=== PATIENT | female | born 1965 | race American Indian/Alaskan Native ===

== ENCOUNTER 2021-09-24 16:19 | Emergency (ER) | payer MEDICAID ==
--- NOTE | 2021-09-24 16:33 | Emergency Department Report ---
HPI - General Time Seen by Provider: 09/24/21 16:30 - HPI HPI: 56-year-old -[place] female presents to the emergency department via EMS from home with a concern for carbon monoxide poisoning and the complaint of shortness of breath that has been going on for the past hour. The patient has been burning wood and a fireplace in her home "all day" but the carbon monoxide alarm went off about 1 hour ago, around the time that the patient began having the shortness of breath. The fire department use a carbon monoxide monitor and said that it was at a level of 16 in the home. Patient was given supplemental oxygen via nonrebreather in route with EMS. She was found to have a heart rate of about 180 bpm. She has a past medical history of hypertension. The patient is a tobacco smoker at 1/2 pack/day. ED Review of Systems ROS: Stated complaint: CARBON MONOXIDE Other details as noted in HPI Comment: All other systems reviewed and negative Constitutional: denies: fever Eyes: denies: eye pain, vision change ENT: denies: ear pain, throat pain Respiratory: shortness of breath. denies: wheezing Cardiovascular: denies: chest pain, edema Gastrointestinal: denies: abdominal pain, vomiting Genitourinary: denies: dysuria, discharge Musculoskeletal: denies: back pain, arthralgia Skin: denies: rash, lesions Neurological: denies: headache, weakness Physical Exam - Physical Exam Physical Exam: GENERAL: The patient is well-developed well-nourished. HENT: Normocephalic. Atraumatic. Patient has moist mucous membranes. EYES: Extraocular motions are intact. NECK: Supple. Trachea is midline. CHEST/LUNGS: Clear to auscultation. There is no respiratory distress noted. HEART/CARDIOVASCULAR: Regular. There is severe tachycardia. There is no murmur. ABDOMEN: Abdomen is soft, nontender. Patient has normal bowel sounds. There is no abdominal distention. SKIN: Skin is warm and dry. NEURO: The patient is awake, alert, and oriented. The patient is cooperative. Normal speech. MUSCULOSKELETAL: There is no tenderness or deformity. There is no limitation range of motion. ED Course - Reevaluation(s) Reevaluation #1: 09/24/21 18:04 Patient was given a dose of 15 mg of Cardizem to try and slow down the heart rat e to better evaluate this tachyarrhythmia. Initially she went down to about 160 bpm but then appeared to convert into a normal sinus rhythm with a heart rate of about 75 bpm. The patient is currently asymptomatic. Labs have been unremarkable including CBC, metabolic panel, negative troponin, normal D-dimer and low proBNP. I will obtain a second troponin at about 2 hours. - ABG Interpretation Ph: 7.421 PCO2: 34 PO2: 259 Bicarbonate: 21.8 Interpretation: normal ED Medical Decision Making - Lab Data Result diagrams: 09/24/21 16:41 09/24/21 16:41 Lab Results 09/24/21 09/24/21 09/24/21 Range/Units 12:40 16:41 16:41 WBC 6.9 (4.5-11.0) K/mm3 RBC 5.14 H (3.65-5.03) M/mm3 Hgb 14.6 H (10.1-14.3) gm/dl Hct 45.3 H (30.3-42.9) % MCV 88 (79-97) fl MCH 29 (28-32) pg MCHC 32 (30-34) % RDW 14.4 (13.2-15.2) % Plt Count 180 (140-440) K/mm3 Lymph % (Auto) 42.6 H (13.4-35.0) % Mcculloch % (Auto) 8.9 H (0.0-7.3) % Eos % (Auto) 0.6 (0.0-4.3) % Baso % (Auto) 1.3 (0.0-1.8) % Lymph # (Auto) 2.9 (1.2-5.4) K/mm3 Mcculloch # (Auto) 0.6 (0.0-0.8) K/mm3 Eos # (Auto) 0.0 (0.0-0.4) K/mm3 Baso # (Auto) 0.1 (0.0-0.1) K/mm3 Seg Neutrophils % 46.6 (40.0-70.0) % Seg Neutrophils # 3.2 (1.8-7.7) K/mm3 D-Dimer 155.58 (0-234) ng/mlDDU ABG pH 7.421 (7.350-7.450) pH Units ABG pCO2 34.3 mm Hg ABG pO2 259.3 H (80.0-90.0) mm Hg ABG HCO3 21.8 (20.0-26.0) mmol/L ABG O2 Saturation 99.4 H (95.0-99.0) % ABG O2 Content 20.1 (0.0-44) ABG Base Excess -1.9 (-2.0-3.0) mmol/L ABG Hemoglobin 15.1 (12.0-16.0) gm/dl ABG Carboxyhemoglobin 7.0 H (0.0-5.0) % ABG Methemoglobin 0.5 (0.0-1.5) % Oxyhemoglobin 91.9 L (95.0-99.0) % FiO2 100 % Sodium (137-145) mmol/L Potassium (3.6-5.0) mmol/L Chloride (98-107) mmol/L Carbon Dioxide (22-30) mmol/L Anion Gap mmol/L BUN (7-17) mg/dL Creatinine (0.6-1.2) mg/dL Estimated GFR ml/min BUN/Creatinine Ratio % Glucose (65-100) mg/dL Calcium (8.4-10.2) mg/dL Magnesium (1.7-2.3) mg/dL Total Bilirubin (0.1-1.2) mg/dL AST (5-40) units/L ALT (7-56) units/L Alkaline Phosphatase (35-129) units/L Troponin T (0.00-0.029) ng/mL NT-Pro-B Natriuret Pep (0-900) pg/mL Total Protein (6.3-8.2) g/dL Albumin (3.9-5) g/dL Albumin/Globulin Ratio % 09/24/21 09/24/21 09/24/21 Range/Units 16:41 16:41 19:29 WBC (4.5-11.0) K/mm3 RBC (3.65-5.03) M/mm3 Hgb (10.1-14.3) gm/dl Hct (30.3-42.9) % MCV (79-97) fl MCH (28-32) pg MCHC (30-34) % RDW (13.2-15.2) % Plt Count (140-440) K/mm3 Lymph % (Auto) (13.4-35.0) % Mcculloch % (Auto) (0.0-7.3) % Eos % (Auto) (0.0-4.3) % Baso % (Auto) (0.0-1.8) % Lymph # (Auto) (1.2-5.4) K/mm3 Mcculloch # (Auto) (0.0-0.8) K/mm3 Eos # (Auto) (0.0-0.4) K/mm3 Baso # (Auto) (0.0-0.1) K/mm3 Seg Neutrophils % (40.0-70.0) % Seg Neutrophils # (1.8-7.7) K/mm3 D-Dimer (0-234) ng/mlDDU ABG pH (7.350-7.450) pH Units ABG pCO2 mm Hg ABG pO2 (80.0-90.0) mm Hg ABG HCO3 (20.0-26.0) mmol/L ABG O2 Saturation (95.0-99.0) % ABG O2 Content (0.0-44) ABG Base Excess (-2.0-3.0) mmol/L ABG Hemoglobin (12.0-16.0) gm/dl ABG Carboxyhemoglobin (0.0-5.0) % ABG Methemoglobin (0.0-1.5) % Oxyhemoglobin (95.0-99.0) % FiO2 % Sodium 139 (137-145) mmol/L Potassium 3.5 L (3.6-5.0) mmol/L Chloride 98.9 (98-107) mmol/L Carbon Dioxide 22 (22-30) mmol/L Anion Gap 22 mmol/L BUN 12 (7-17) mg/dL Creatinine 0.9 (0.6-1.2) mg/dL Estimated GFR > 60 ml/min BUN/Creatinine Ratio 13 % Glucose 205 H (65-100) mg/dL Calcium 9.9 (8.4-10.2) mg/dL Magnesium 1.60 L (1.7-2.3) mg/dL Total Bilirubin 0.30 (0.1-1.2) mg/dL AST 58 H (5-40) units/L ALT 63 H (7-56) units/L Alkaline Phosphatase 141 H (35-129) units/L Troponin T < 0.010 < 0.010 (0.00-0.029) ng/mL NT-Pro-B Natriuret Pep 146.4 (0-900) pg/mL Total Protein 7.5 (6.3-8.2) g/dL Albumin 4.4 (3.9-5) g/dL Albumin/Globulin Ratio 1.4 % - EKG Data -: EKG Interpreted by Me EKG shows normal: sinus rhythm, axis, intervals, QRS complexes, ST-T waves Rate: tachycardia (174 bpm) - EKG Data When compared to previous EKG there are: previous EKG unavailable Interpretation: other (Severe sinus tachycardia 174, wide complexes, normal axis. No ST elevation MS) 09/24/21 18:04 Repeat EKG at 1743 shows a normal sinus rhythm at 72 bpm, PACs, normal axis, nor mal intervals. No ST elevation MS. Normal-appearing EKG. - Medical Decision Making This patient presented to the emergency department with severe tachycardia, shortness of breath, and concern for exposure to carbon monoxide. Apparently the fire department registered a carbon oxide level of 16 with their equipment. EKG shows slightly wide-complex tachycardia but no morphology consistent with ST elevation myocardial infarction. The patient did have a carboxyhemoglobin level done and it came back at 7. This does not appear consistent with a significant carbon monoxide exposure and may be secondary to the fact that the patient is a daily tobacco smoker. Chest x-ray does not show any pneumonia, pleural effusions, pneumothorax, widened mediastinum, or any other acute process. The rest the patient's labs have been unremarkable including CBC, metabolic panel an d negative troponins x2. The patient was given a dose of Cardizem secondary to the tachycardia with the plan of slowing her down enough to get another EKG to better differentiate the tachyarrhythmia. She went down to about 160 bpm, but within 15 minutes completely cardioverted to a normal sinus rhythm at about 75 bpm. The patient was reevaluated multiple times over multiple hours and did not have any return of tachycardia or her shortness of breath. She appears safe for discharge home at this time. She was given an outpatient referral for cardiology. She will return to the emergency department with any return of her symptoms, or with any acute distress. Critical Care Time: No Critical care attestation.: If time is entered above; I have spent that time in minutes in the direct care of this critically ill patient, excluding procedure time. ED Disposition Clinical Impression: Tachyarrhythmia, Carbon monoxide exposure, Elevated liver enzymes Disposition: HOME / SELF CARE / HOMELESS Is pt being admited?: No Condition: Stable Instructions: Sinus Tachycardia Additional Instructions: Please follow-up with a primary care physician in the next few days. I am giving you a referral for a local solar sales energy advisor, Dr. Rudolph, to follow-up regarding the severe tachycardia you experienced with a heart rate that reached 180 beats per minute. You were found to have slightly elevated liver enzymes today on the laboratory studies that were done. Because of this, please avoid any alcohol or Tylenol/acetaminophen. I have given you a referral for [facility] to follow-up regarding the elevated liver enzymes. Return to the emergency department with any worsening of your symptoms, new or concerning symptoms not addressed during this current emergency department visit, or with any acute distress. Referrals: PRIMARY MD AKUA [Primary Care Provider] - 3-5 Days PETER RUDOLPH MD [Staff Physician] - 3-5 Days [facility] [Provider Group] - 3-5 Days Time of Disposition: 20:53
[2021-09-24] MEDS ORDERED: SODIUM CHLORIDE 0.9% 1000 ML 1,000 ML IV ONE (16:34)
[2021-09-24] MEDS ORDERED: SODIUM CHLORIDE 0.9% 1000 ML 1,000 ML ONE (16:35)
[2021-09-24 16:49] LABS: ABG Base Excess -1.9 mmol/L (-2.0-3.0); ABG HCO3 21.8 mmol/L (20.0-26.0); ABG Methemoglobin 0.5 % (0.0-1.5); ABG Oxygen Saturation 99.4 % (95.0-99.0); ABG PCO2 34.3 mm Hg; ABG PH 7.421 pH Units (7.350-7.450)
[2021-09-24 16:51] LABS: ABG PO2 259.3 mm Hg (80.0-90.0)
[2021-09-24] MEDS ORDERED: dilTIAZem 25 MG/5 ML INJ IV ONE (17:01)
--- NOTE | 2021-09-24 17:03 | XRay Report ---
CHEST 1 VIEW 09/24/2021 3:55 PM INDICATION / CLINICAL INFORMATION: SOB. COMPARISON: None available. FINDINGS: SUPPORT DEVICES: None. HEART / MEDIASTINUM: No significant abnormality. LUNGS / PLEURA: No focal consolidation. There is mild pulmonary vascular indistinctness. No pneumotho rax. ADDITIONAL FINDINGS: No significant additional findings. IMPRESSION: 1. Mild pulmonary edema Signer Name: Earle Cervantes DO Signed: 09/24/2021 4:58 PM Workstation Name: [id number]
[2021-09-24 17:13] LABS: Basophils # (Auto) 0.1 K/mm3 (0.0-0.1); Basophils % (Auto) 1.3 % (0.0-1.8); Eosinophils % (Auto) 0.6 % (0.0-4.3); Hematocrit 45.3 % (30.3-42.9); Hemoglobin 14.6 gm/dl (10.1-14.3); Lymphocytes # (Auto) 2.9 K/mm3 (1.2-5.4); Lymphocytes % (Auto) 42.6 % (13.4-35.0); Mean Corpuscular HGB Conc 32 % (30-34); Mean Corpuscular Volume 88 fl (79-97); Monocytes # (Auto) 0.6 K/mm3 (0.0-0.8); Monocytes % (Auto) 8.9 % (0.0-7.3); Platelet Count 180 K/mm3 (140-440); Red Blood Count 5.14 M/mm3 (3.65-5.03); Red Cell Distribution Width 14.4 % (13.2-15.2)
[2021-09-24 17:33] LABS: Alanine Aminotransferase 63 units/L (7-56); Albumin 4.4 g/dL (3.9-5); BUN/Creatinine Ratio 13; Blood Urea Nitrogen 12 mg/dL (7-17); Calcium 9.9 mg/dL (8.4-10.2); Hemolysis Index 15
[2021-09-24] MEDS ORDERED: MAGNESIUM SULFATE 1 GM in SODIUM CHLORIDE 0.9% 50 ML IV ONE (17:37)
[2021-09-24] MEDS ORDERED: MAGNESIUM SULFATE 0 GM/0 ML BAG IV ONE (18:17)
[2021-09-24 21:15] VITALS: BP 132/79
--- NOTE | 2021-09-28 10:03 | Electrocardiograph Report ---
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 No previous ECG available for comparison Electronically Signed On 09-28-2021 10:02:43 EST by Minesh Meyers
--- NOTE | 2021-09-28 10:05 | Electrocardiograph Report ---
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 Electronically Signed On 09-28-2021 10:05:15 EST by Minesh Meyers
== END 2021-09-24 21:15 | disposition home or self-care (01) ==
LOC: ED 16:19
DX: R00.0 Tachycardia, unspecified (principal); R94.5 Abnormal results of liver function studies; T58.2X1A Toxic effect of carbon monoxide from incomplete combustion of other domestic fuels, accidental (unintentional), initial encounter; Y92.098 Other place in other non-institutional residence as the place of occurrence of the external cause
CPT/HCPCS: 36415; 71045; 80053; 82803; 83735; 83880; 84484; 85025; 85379; 93005; 96361; 96365; 96375; 99284; J3475; J7030